=== PATIENT | female | born 1945 | race Caucasian/White ===

== ENCOUNTER 2018-07-09 10:32 | Outpatient (CLI) | payer BC, MEDICARE | END 2018-07-09 10:33 | disposition home or self-care (01) | LOC: BICMAMMO 10:32 | PROVIDERS: ATTEND Internal Medicine | DX: Z12.31 Encounter for screening mammogram for malignant neoplasm of breast (principal) | CPT/HCPCS: 77063; 77067 ==

== ENCOUNTER 2023-07-09 09:55 | Inpatient (IN) | payer BC, MEDICARE ==
[2023-07-09 10:34] LABS: #Basophils 0.1 thou/uL (0.0-0.2); #Eosinphils 0.2 thou/uL (0.0-0.7); #Monocytes 0.4 thou/uL (0.11-0.59); #Neutrophils 7.3 thou/uL (1.40-6.50); %Basophils 0.6 % (0.0-1.0); %Eosinophils 2.6 % (0.0-10.0); %Lymphocytes 14.5 % (21.0-51.0); %Monocytes 4.6 % (0.0-10.0); %Neutrophils 77.4 % (42.0-75.0); Hematocrit 25.3 % (36.0-47.0); Hemoglobin 8.3 g/dL (12.0-16.0); Mean Corpuscular HGB CONC 32.8 g/dL (32.0-36.0); Mean Corpuscular Hemoglobin 30.1 pg (27.0-31.0); Mean Corpuscular Volume 91.7 fl (78.0-98.0); Mean Platelet Volume 10.4 fL (7.4-10.4); Platelet Count 267 10x3/uL (130-400); RBC Distribution Width 15.1 % (11.5-14.5); Red Blood Cell (RBC) Count 2.76 mill/uL (4.20-5.40); White Blood Cell (WBC) Count 9.4 10x3/uL (4.8-10.8)
[2023-07-09 10:59] LABS: ALT (SGPT) 32 U/L (8-55); AST (SGOT) 63 U/L (5-34); Alkaline Phosphatase 54 U/L (40-110); Anion Gap 14 mmol/L (10-20); BUN (Urea Nitrogen) 20 mg/dL (9.8-20.1); Bilirubin, Total 0.4 mg/dL (0.2-1.2); Calc. Creatinine Clearance 0 mL/min (70-130); Calcium 9.3 mg/dL (7.8-10.44); Carbon Dioxide 24 mmol/L (23-31); Chloride 104 mmol/L (98-107); Estimated GFR 31; Globulin 2.7 g/dL (2.4-3.5); Glucose 116 mg/dL (83-110); Iron 39 ug/dL (50-170); Iron Binding Capacity, Total 311 mcg/dL (265-497); Potassium 4.2 mmol/L (3.5-5.1); Protein, Total 6.7 g/dL (5.8-8.1); Sodium 138 mmol/L (136-145)
[2023-07-09 11:09] LABS: INR-International Normal Ratio 1.3; PTT 38.8 sec (22.9-36.1); Prothrombin Time 16.6 sec (12.0-14.7)
[2023-07-09] MEDS ORDERED: Electrolyte Replacement Protocol 1 EACH FS SCH (13:15)
[2023-07-09] MEDS ORDERED: Acetaminophen 650 MG Suppository PR PRN (13:16)
[2023-07-09] MEDS ORDERED: Ondansetron ODT 4 MG TAB PO PRN (13:16)
[2023-07-09] MEDS ORDERED: Ondansetron PF 4 MG/2 ML Vial IVP PRN (13:16)
[2023-07-09] MEDS ORDERED: Acetaminophen 325 MG TAB PO PRN (13:16)
[2023-07-09 15:21] VITALS: BMI 30.5
[2023-07-09] MEDS ORDERED: FLU VACC QS2023(65UP)/MF59C/PF 60 MCG/0.5 ML SYRINGE IM ONE (15:45)
[2023-07-09 16:07] LABS: #Basophils 0.1 thou/uL (0.0-0.2); #Eosinphils 0.3 thou/uL (0.0-0.7); #Monocytes 0.7 thou/uL (0.11-0.59); #Neutrophils 4.6 thou/uL (1.40-6.50); %Basophils 0.8 % (0.0-1.0); %Eosinophils 3.6 % (0.0-10.0); %Lymphocytes 27.8 % (21.0-51.0); %Monocytes 8.5 % (0.0-10.0); %Neutrophils 59.2 % (42.0-75.0); Hematocrit 25.8 % (36.0-47.0); Hemoglobin 8.7 g/dL (12.0-16.0); Mean Corpuscular HGB CONC 33.7 g/dL (32.0-36.0); Mean Corpuscular Hemoglobin 30.5 pg (27.0-31.0); Mean Corpuscular Volume 90.5 fl (78.0-98.0); Mean Platelet Volume 10.3 fL (7.4-10.4); Platelet Count 228 10x3/uL (130-400); RBC Distribution Width 14.6 % (11.5-14.5); Red Blood Cell (RBC) Count 2.85 mill/uL (4.20-5.40); White Blood Cell (WBC) Count 7.8 10x3/uL (4.8-10.8)
[2023-07-09] MEDS ORDERED: Promethazine HCl 12.5 MG in Sodium Chloride 0.9% 50 ML IVPB PRN (16:10)
[2023-07-09] MEDS: Sodium Chloride 0.9% 1,000 ML IV SCH (17:00)
[2023-07-09] MEDS: Dronedarone HCl 400 MG TAB PO SCH (20:16)
[2023-07-09 20:18] LABS: #Basophils 0.1 thou/uL (0.0-0.2); #Eosinphils 0.4 thou/uL (0.0-0.7); #Monocytes 0.7 thou/uL (0.11-0.59); #Neutrophils 4.2 thou/uL (1.40-6.50); %Basophils 1.2 % (0.0-1.0); %Eosinophils 5.6 % (0.0-10.0); %Lymphocytes 28.6 % (21.0-51.0); %Monocytes 9.2 % (0.0-10.0); %Neutrophils 55.1 % (42.0-75.0); Hematocrit 25.4 % (36.0-47.0); Hemoglobin 8.6 g/dL (12.0-16.0); Mean Corpuscular HGB CONC 33.9 g/dL (32.0-36.0); Mean Corpuscular Hemoglobin 29.9 pg (27.0-31.0); Mean Corpuscular Volume 88.2 fl (78.0-98.0); Platelet Count 228 10x3/uL (130-400); RBC Distribution Width 14.7 % (11.5-14.5); Red Blood Cell (RBC) Count 2.88 mill/uL (4.20-5.40); White Blood Cell (WBC) Count 7.6 10x3/uL (4.8-10.8)
[2023-07-09] MEDS: Pantoprazole 40 MG VIAL IVP SCH (20:25)
[2023-07-09] MEDS: GoLYTELY 4,000 ml Bottle PO SCH (21:01)
[2023-07-10] MEDS: Sodium Chloride 0.9% 1,000 ML IV SCH ×3 (03:20→17:00)
[2023-07-10] MEDS: GoLYTELY 4,000 ml Bottle PO SCH (03:21)
[2023-07-10 06:28] LABS: #Basophils 0.1 thou/uL (0.0-0.2); #Eosinphils 0.5 thou/uL (0.0-0.7); #Monocytes 0.6 thou/uL (0.11-0.59); #Neutrophils 4.7 thou/uL (1.40-6.50); %Basophils 0.9 % (0.0-1.0); %Eosinophils 6.2 % (0.0-10.0); %Lymphocytes 21.7 % (21.0-51.0); %Monocytes 8.2 % (0.0-10.0); %Neutrophils 62.5 % (42.0-75.0); Hematocrit 27.2 % (36.0-47.0); Mean Corpuscular HGB CONC 33.1 g/dL (32.0-36.0); Mean Corpuscular Hemoglobin 29.2 pg (27.0-31.0); Mean Corpuscular Volume 88.3 fl (78.0-98.0); Mean Platelet Volume 10.3 fL (7.4-10.4); Platelet Count 232 10x3/uL (130-400); RBC Distribution Width 14.8 % (11.5-14.5); Red Blood Cell (RBC) Count 3.08 mill/uL (4.20-5.40); White Blood Cell (WBC) Count 7.6 10x3/uL (4.8-10.8)
[2023-07-10 06:51] LABS: Anion Gap 13 mmol/L (10-20); BUN (Urea Nitrogen) 10 mg/dL (9.8-20.1); Calc. Creatinine Clearance 55 mL/min (70-130); Calcium 9.4 mg/dL (7.8-10.44); Carbon Dioxide 27 mmol/L (23-31); Chloride 106 mmol/L (98-107); Estimated GFR 58; Glucose 88 mg/dL (83-110); Magnesium 1.8 mg/dL (1.6-2.6); Potassium 4.3 mmol/L (3.5-5.1); Sodium 142 mmol/L (136-145)
[2023-07-10] MEDS ORDERED: Magnesium 2 GM/50 ML(in water) 2 GM in Premix Bag 1 BAG IVPB SCH (08:00)
[2023-07-10] MEDS: Pantoprazole 40 MG VIAL IVP SCH ×2 (08:14→19:56)
[2023-07-10] MEDS: Dronedarone HCl 400 MG TAB PO SCH ×2 (08:14→19:55)
[2023-07-10] MEDS ORDERED: PROPOFOL 200 MG/20 ML VIAL ONE (12:26)
[2023-07-10] MEDS ORDERED: Lidocaine 1% PF 5 ML VIAL ONE (12:26)
[2023-07-10] MEDS ORDERED: Promethazine HCl 25 MG/ML VIAL IM PRN (13:07)
[2023-07-10] MEDS ORDERED: Ondansetron HCl/PF 4 MG/2 ML Vial IVP PRN (13:07)
[2023-07-10] MEDS ORDERED: fentaNYL 50 mcg/mL 1 mL Vial ONE (13:22)
[2023-07-10] MEDS: hydrALAZINE 25 MG TAB PO SCH (19:55)
[2023-07-10] MEDS ORDERED: Amlodipine 10 MG TAB PO SCH (21:00)
[2023-07-10] MEDS ORDERED: Rosuvastatin 20 MG TAB PO SCH (21:00)
[2023-07-11] MEDS: Sodium Chloride 0.9% 1,000 ML IV SCH ×2 (05:25→14:57)
[2023-07-11 06:47] LABS: #Basophils 0.1 thou/uL (0.0-0.2); #Eosinphils 0.4 thou/uL (0.0-0.7); #Monocytes 0.6 thou/uL (0.11-0.59); %Basophils 0.8 % (0.0-1.0); %Eosinophils 6.8 % (0.0-10.0); %Lymphocytes 21.1 % (21.0-51.0); %Monocytes 9.3 % (0.0-10.0); %Neutrophils 61.7 % (42.0-75.0); Hematocrit 25.2 % (36.0-47.0); Hemoglobin 8.2 g/dL (12.0-16.0); Mean Corpuscular HGB CONC 32.5 g/dL (32.0-36.0); Mean Corpuscular Hemoglobin 29.2 pg (27.0-31.0); Mean Corpuscular Volume 89.7 fl (78.0-98.0); Mean Platelet Volume 10.3 fL (7.4-10.4); Platelet Count 213 10x3/uL (130-400); RBC Distribution Width 15.1 % (11.5-14.5); Red Blood Cell (RBC) Count 2.81 mill/uL (4.20-5.40); White Blood Cell (WBC) Count 6.5 10x3/uL (4.8-10.8)
[2023-07-11 07:08] LABS: Anion Gap 11 mmol/L (10-20); BUN (Urea Nitrogen) 5 mg/dL (9.8-20.1); Calc. Creatinine Clearance 71 mL/min (70-130); Calcium 8.9 mg/dL (7.8-10.44); Carbon Dioxide 23 mmol/L (23-31); Chloride 110 mmol/L (98-107); Estimated GFR 78; Glucose 89 mg/dL (83-110); Sodium 140 mmol/L (136-145)
[2023-07-11] MEDS ORDERED: fentaNYL 50 mcg/mL 1 mL Vial ONE (08:58)
[2023-07-11] MEDS ORDERED: DULoxetine 30 MG CAP PO SCH (09:00)
[2023-07-11] MEDS ORDERED: Losartan 25 MG TAB PO SCH (09:00)
[2023-07-11] MEDS ORDERED: PROPOFOL 200 MG/20 ML VIAL ONE (09:01)
[2023-07-11] MEDS ORDERED: Lidocaine 1% PF 5 ML VIAL ONE (09:01)
[2023-07-11] MEDS: Dronedarone HCl 400 MG TAB PO SCH (10:41)
[2023-07-11] MEDS: hydrALAZINE 25 MG TAB PO SCH (10:41)
[2023-07-11] MEDS: Pantoprazole 40 MG VIAL IVP SCH (10:42)
[2023-07-11] MEDS ORDERED: Acetaminophen 500 MG TAB PO SCH (11:45)
[2023-07-11] MEDS ORDERED: Acetaminophen 325 MG TAB PO SCH (13:30)
[2023-07-11 16:58] VITALS: BP 147/71; TEMP 98.1
== END 2023-07-11 17:42 | disposition home or self-care (01) | DRG 378 ==
LOC: ERS 09:55 → ERHOLD 11:47 → OBSVTOIN 13:25 → T4-A 15:26
PROVIDERS: ADMIT Internal Medicine; ATTEND Hospitalist
PROC: 30233N1 Transfusion of Nonautologous Red Blood Cells into Peripheral Vein, Percutaneous Approach (ICD-10-PCS; 2023-07-09)
PROC: 0DBP8ZX Excision of Rectum, Via Natural or Artificial Opening Endoscopic, Diagnostic (ICD-10-PCS; 2023-07-10)
PROC: 0DBL8ZX Excision of Transverse Colon, Via Natural or Artificial Opening Endoscopic, Diagnostic (ICD-10-PCS; 2023-07-10)
PROC: 0DBN8ZX Excision of Sigmoid Colon, Via Natural or Artificial Opening Endoscopic, Diagnostic (ICD-10-PCS; 2023-07-10)
PROC: 0W3P8ZZ Control Bleeding in Gastrointestinal Tract, Via Natural or Artificial Opening Endoscopic (ICD-10-PCS; principal; 2023-07-11)
PROC: 0DB98ZX Excision of Duodenum, Via Natural or Artificial Opening Endoscopic, Diagnostic (ICD-10-PCS; 2023-07-11)
PROC: 0DB78ZX Excision of Stomach, Pylorus, Via Natural or Artificial Opening Endoscopic, Diagnostic (ICD-10-PCS; 2023-07-11)
DX: K31.811 Angiodysplasia of stomach and duodenum with bleeding (principal); N17.9 Acute kidney failure, unspecified; I10 Essential (primary) hypertension; E78.5 Hyperlipidemia, unspecified; I48.0 Paroxysmal atrial fibrillation; I25.10 Atherosclerotic heart disease of native coronary artery without angina pectoris; G47.33 Obstructive sleep apnea (adult) (pediatric); M19.90 Unspecified osteoarthritis, unspecified site; K58.0 Irritable bowel syndrome with diarrhea; K63.5 Polyp of colon; K57.30 Diverticulosis of large intestine without perforation or abscess without bleeding; K29.70 Gastritis, unspecified, without bleeding; K29.80 Duodenitis without bleeding; Z88.5 Allergy status to narcotic agent; Z88.8 Allergy status to other drugs, medicaments and biological substances; Z79.01 Long term (current) use of anticoagulants; Z79.899 Other long term (current) drug therapy; Z79.82 Long term (current) use of aspirin; Z98.890 Other specified postprocedural states; Z95.5 Presence of coronary angioplasty implant and graft; Z90.49 Acquired absence of other specified parts of digestive tract; Z87.891 Personal history of nicotine dependence
CPT/HCPCS: 36415; 36430; 80048; 80053; 82728; 83540; 83550; 83735; 85025; 85610; 85730; 86850; 86900; 86901; 88305; 99284; C9113; J2704; J3010; J3475; J7050; P9016

== ENCOUNTER 2024-04-02 12:38 | Inpatient (IN) | payer BC, MEDICARE ==
[2024-04-02 13:36] LABS: %Basophils 0.5 % (0.0-1.0); %Eosinophils 0.7 % (0.0-10.0); %Lymphocytes 8.4 % (21.0-51.0); %Neutrophils 82.8 % (42.0-75.0); Hematocrit 38.4 % (36.0-47.0); Hemoglobin 12.8 g/dL (12.0-16.0); Mean Corpuscular HGB CONC 33.3 g/dL (32.0-36.0); Mean Corpuscular Hemoglobin 29.8 pg (27.0-31.0); Mean Corpuscular Volume 89.5 fL (78.0-98.0); Mean Platelet Volume 9.3 fL (7.4-10.4); Platelet Count 329 10x3/uL (130-400); Red Blood Cell (RBC) Count 4.29 mill/uL (4.20-5.40)
[2024-04-02] MEDS ORDERED: Morphine 4 MG/ML VIAL ONE ×2 (13:39→16:07)
[2024-04-02] MEDS ORDERED: Ondansetron PF 4 MG/2 ML Vial ONE (13:39)
[2024-04-02 14:12] LABS: ALT (SGPT) 9 U/L (8-55); AST (SGOT) 16 U/L (5-34); Albumin 3.2 g/dL (3.4-4.8); Alkaline Phosphatase 76 U/L (40-110); Anion Gap 14 mmol/L (10-20); BUN (Urea Nitrogen) 22 mg/dL (9.8-20.1); Bilirubin, Total 0.3 mg/dL (0.2-1.2); Calc. Creatinine Clearance 0 mL/min (70-130); Calcium 9.9 mg/dL (7.8-10.44); Carbon Dioxide 22 mmol/L (23-31); Chloride 100 mmol/L (98-107); Estimated GFR 57; Globulin 4.3 g/dL (2.4-3.5); Glucose 127 mg/dL (83-110); Lipase 36 U/L (8-78); Magnesium 1.8 mg/dL (1.6-2.6); Potassium 3.8 mmol/L (3.5-5.1); Protein, Total 7.5 g/dL (5.8-8.1); Sodium 132 mmol/L (136-145)
[2024-04-02] MEDS ORDERED: Diphenoxylate HCl/Atropine Tablet ONE (15:27)
[2024-04-02 16:19] LABS: Bacteria/HPF None Seen HPF (None Seen); Bilirubin Negative (Negative); Blood, Urine Negative (Negative); CAUTI Indications for Culture Pelvic or flank pain; Clarity Clear (Clear); Glucose, Urine (Dipstick) Normal (Negative); Ketone, Urine Negative (Negative); Leukocyte Negative Leu/uL (Negative); Nitrite Negative (Negative); Protein, Urine (Dipstick) Negative (Neg-Trace); RBC/HPF None Seen HPF (0-3); Specific Gravity, Urine 1.008 (1.002-1.036); Squamous Epithelial 0-3 HPF (0-3); Urobilinogen Normal mg/dL (Less than 2); WBC/HPF 0-3 HPF (0-3); pH, Urine 5.5 (5.0-9.0)
[2024-04-02 16:23] LABS: Urine Culture Reflex No No
[2024-04-02] MEDS: Vancomycin HCl 125 MG Capsule PO SCH (22:58)
[2024-04-02] MEDS ORDERED: Ondansetron PF 4 MG/2 ML Vial IVP PRN (23:09)
[2024-04-02] MEDS ORDERED: Ondansetron ODT 4 MG TAB PO PRN (23:09)
[2024-04-02] MEDS ORDERED: Acetaminophen 650 MG Suppository PR PRN (23:09)
[2024-04-03 03:10] LABS: Campy jejuni + coli by PCR Negative (Negative); STEC Shiga Toxin 1+2 Negative (Negative); Salmonella spp. by PCR Negative (Negative); Shigella spp + EIEC by PCR Negative (Negative)
[2024-04-03 03:44] LABS: #Basophils 0.03 10x3/uL (0.0-0.2); #Eosinphils Less than 0.03 10x3/uL (0.0-0.7); %Basophils 0.2 % (0.0-1.0); %Lymphocytes 8.3 % (21.0-51.0); %Monocytes 3.9 % (0.0-10.0); %Neutrophils 87.1 % (42.0-75.0); Hematocrit 35.5 % (36.0-47.0); Hemoglobin 12.1 g/dL (12.0-16.0); Mean Corpuscular HGB CONC 34.1 g/dL (32.0-36.0); Mean Corpuscular Hemoglobin 30.6 pg (27.0-31.0); Mean Corpuscular Volume 89.9 fL (78.0-98.0); Platelet Count 292 10x3/uL (130-400); RBC Distribution Width 12.9 % (11.5-14.5); Red Blood Cell (RBC) Count 3.95 mill/uL (4.20-5.40)
[2024-04-03 04:01] LABS: Anion Gap 14 mmol/L (10-20); BUN (Urea Nitrogen) 23 mg/dL (9.8-20.1); Calc. Creatinine Clearance 75 mL/min (70-130); Calcium 9.1 mg/dL (7.8-10.44); Carbon Dioxide 22 mmol/L (23-31); Chloride 102 mmol/L (98-107); Estimated GFR 69; Glucose 124 mg/dL (83-110); Potassium 4.3 mmol/L (3.5-5.1); Sodium 134 mmol/L (136-145)
[2024-04-03 04:58] VITALS: BMI 27.3
[2024-04-03] MEDS: Vancomycin HCl 125 MG Capsule PO SCH (06:14)
[2024-04-03] MEDS: Furosemide 40 MG TAB PO SCH (09:43)
[2024-04-03] MEDS: Famotidine 20 MG TAB PO SCH (09:43)
[2024-04-03] MEDS: Apixaban 5 MG TAB PO SCH (09:44)
[2024-04-03] MEDS: Dronedarone HCl 400 MG TAB PO SCH (09:44)
[2024-04-03] MEDS: hydrALAZINE 25 MG TAB PO SCH (09:44)
[2024-04-03] MEDS: Famotidine/PF 20 mg/2ml Vial SLOW IVP SCH (13:15)
[2024-04-03] MEDS: Acetaminophen 325 MG TAB PO PRN (14:01)
[2024-04-03] MEDS: HYDROcodone/Acetaminophen 5/325 mg Tablet PO PRN (18:10)
[2024-04-03] MEDS: CeleCOXIB 100 MG CAP PO SCH (19:41)
[2024-04-03] MEDS: Rosuvastatin 20 MG TAB PO SCH (20:35)
[2024-04-04 06:58] LABS: #Basophils 0.06 10x3/uL (0.0-0.2); %Basophils 0.7 % (0.0-1.0); %Eosinophils 3.3 % (0.0-10.0); %Lymphocytes 15.6 % (21.0-51.0); %Monocytes 11.4 % (0.0-10.0); %Neutrophils 68.5 % (42.0-75.0); Hematocrit 33.6 % (36.0-47.0); Hemoglobin 11.4 g/dL (12.0-16.0); Mean Corpuscular HGB CONC 33.9 g/dL (32.0-36.0); Mean Corpuscular Hemoglobin 30.4 pg (27.0-31.0); Mean Corpuscular Volume 89.6 fL (78.0-98.0); Mean Platelet Volume 9.3 fL (7.4-10.4); Platelet Count 298 10x3/uL (130-400); RBC Distribution Width 13.1 % (11.5-14.5); Red Blood Cell (RBC) Count 3.75 mill/uL (4.20-5.40)
[2024-04-04 07:53] LABS: Anion Gap 12 mmol/L (10-20); BUN (Urea Nitrogen) 25 mg/dL (9.8-20.1); Calc. Creatinine Clearance 60 mL/min (70-130); Calcium 9.1 mg/dL (7.8-10.44); Carbon Dioxide 25 mmol/L (23-31); Chloride 102 mmol/L (98-107); Estimated GFR 61; Glucose 86 mg/dL (83-110); Potassium 3.6 mmol/L (3.5-5.1); Sodium 135 mmol/L (136-145)
[2024-04-04] MEDS ORDERED: DULoxetine 30 MG CAP PO SCH (09:00)
[2024-04-04] MEDS: CeleCOXIB 100 MG CAP PO SCH (09:21)
[2024-04-04] MEDS: Saccharomyces boulardii 250 MG CAP PO SCH (09:21)
[2024-04-04] MEDS: DULoxetine 60 MG CAP PO SCH (09:22)
[2024-04-04] MEDS: Colchicine 0.6 MG TAB PO SCH (21:05)
[2024-04-05] MEDS: Famotidine 20 MG TAB PO SCH (09:19)
[2024-04-06] MEDS ORDERED: predniSONE 20 MG TAB PO SCH (08:00)
[2024-04-06] MEDS: predniSONE 5 MG TAB PO SCH (08:10)
[2024-04-06 08:12] LABS: #Basophils 0.09 10x3/uL (0.0-0.2); %Eosinophils 3.5 % (0.0-10.0); %Lymphocytes 21.1 % (21.0-51.0); %Monocytes 12.9 % (0.0-10.0); %Neutrophils 58.3 % (42.0-75.0); Hematocrit 32.4 % (36.0-47.0); Hemoglobin 10.8 g/dL (12.0-16.0); Mean Corpuscular HGB CONC 33.3 g/dL (32.0-36.0); Mean Corpuscular Hemoglobin 29.6 pg (27.0-31.0); Mean Corpuscular Volume 88.8 fL (78.0-98.0); Mean Platelet Volume 9.6 fL (7.4-10.4); Platelet Count 299 10x3/uL (130-400); Red Blood Cell (RBC) Count 3.65 mill/uL (4.20-5.40)
[2024-04-06 08:28] LABS: Anion Gap 13 mmol/L (10-20); BUN (Urea Nitrogen) 11 mg/dL (9.8-20.1); Calc. Creatinine Clearance 88 mL/min (70-130); Carbon Dioxide 26 mmol/L (23-31); Chloride 102 mmol/L (98-107); Estimated GFR 90; Glucose 93 mg/dL (83-110); Potassium 3.8 mmol/L (3.5-5.1); Sodium 137 mmol/L (136-145)
[2024-04-07 05:28] VITALS: TEMP 97.8
[2024-04-07 08:16] VITALS: BP 164/81
== END 2024-04-07 16:51 | disposition home or self-care (01) | DRG 373 ==
LOC: ERS 12:38 → ERHOLD 20:58 → SJJU 21:46 → OBSVTOIN 04-03 06:42 → SJJU 04-03 08:16
PROVIDERS: ADMIT Student in an Organized Health Care Education/Training Program; ATTEND Internal Medicine
DX: A04.72 Enterocolitis due to Clostridium difficile, not specified as recurrent (principal); I48.0 Paroxysmal atrial fibrillation; E78.5 Hyperlipidemia, unspecified; I10 Essential (primary) hypertension; S63.091A Other subluxation of right wrist and hand, initial encounter; X58.XXXA Exposure to other specified factors, initial encounter; M19.90 Unspecified osteoarthritis, unspecified site; Z88.5 Allergy status to narcotic agent; Z88.8 Allergy status to other drugs, medicaments and biological substances; Z79.899 Other long term (current) drug therapy; Z79.01 Long term (current) use of anticoagulants; Z95.2 Presence of prosthetic heart valve; Z90.49 Acquired absence of other specified parts of digestive tract; Y93.89 Activity, other specified; Y92.89 Other specified places as the place of occurrence of the external cause
CPT/HCPCS: 36415; 36416; 80048; 80053; 81001; 83690; 83735; 85025; 87040; 87324; 87449; 87505; 96361; 96374; 96375; 96376; G0378; J2270; J2405; J7512